=== PATIENT | female | born 2000 | race Caucasian/White ===

== ENCOUNTER 2023-06-22 22:43 | Emergency (ER) | payer OTHER ==
[2023-06-22 22:55] VITALS: BMI 20.4
[2023-06-22] MEDS ORDERED: ALBUTEROL SO4 2.5/IPRATROPIUM 0.5 INH SOL 3 ML VIAL.NEB. NEB ONE ×2 (23:50→23:51)
[2023-06-23] MEDS ORDERED: ALBUTEROL SO4 2.5/IPRATROPIUM 0.5 INH SOL 3 ML VIAL.NEB. NEB ONE ×2 (01:02→01:03)
[2023-06-23 01:25] VITALS: BP 96/57; PULSE 103; RESP 16; TEMP 98.8
== END 2023-06-23 02:01 | disposition home or self-care (01) ==
LOC: EDBD 22:43 → JER 22:43
PROC: 3E0F7GC Introduction of Other Therapeutic Substance into Respiratory Tract, Via Natural or Artificial Opening (ICD-10-PCS; principal; 2023-06-22)
DX: R06.02 Shortness of breath (principal); J20.9 Acute bronchitis, unspecified; Z20.822 Contact with and (suspected) exposure to COVID-19
CPT/HCPCS: 0241U-QW; 99283-25

== ENCOUNTER 2023-10-18 07:58 | Emergency (ER) | payer OTHER ==
[2023-10-18 08:29] VITALS: BP 100/66; PULSE 97; RESP 18; TEMP 98.5; BMI 20.2
[2023-10-18] MEDS: ACETAMINOPHEN 500 MG TABLET (FP) PO ONE (08:35)
[2023-10-18] MEDS: IBUPROFEN 600 MG TABLET (FP) PO ONE (08:50)
[2023-10-18] MEDS ORDERED: ACETAMINOPHEN 650 MG/20.3 ML ORAL SOLUTION (CUPS) ONE (09:04)
[2023-10-18] MEDS: PENICILLIN G BENZATHINE 1,200,000 UNIT/2 ML PFS IM ONE (10:28)
== END 2023-10-18 11:04 | disposition home or self-care (01) ==
LOC: JERFT 07:58 → JER 07:58 → JERFT 11:04
DX: J03.90 Acute tonsillitis, unspecified (principal); B96.89 Other specified bacterial agents as the cause of diseases classified elsewhere; R59.0 Localized enlarged lymph nodes; Z20.822 Contact with and (suspected) exposure to COVID-19
CPT/HCPCS: 0241U-QW; 87651; 99284-25

== ENCOUNTER 2023-12-24 14:08 | Emergency (ER) | payer OTHER ==
[2023-12-24 14:24] VITALS: BP 104/71; PULSE 115; RESP 17; TEMP 98.7; BMI 20.4
[2023-12-24] MEDS ORDERED: predniSONE 20 MG TABLET (UD) ONE (15:14)
[2023-12-24] MEDS ORDERED: predniSONE 10 MG TABLET (UD) ONE (15:14)
[2023-12-24] MEDS ORDERED: diphenhydrAMINE HCL 25 MG CAPSULE (FP) PO ONE (15:14)
[2023-12-24] MEDS ORDERED: FAMOTIDINE 20 MG TABLET ONE (15:14)
[2023-12-24] MEDS: diphenhydrAMINE HCL 50 MG CAPSULE PO ONE (15:23)
[2023-12-24] MEDS: FAMOTIDINE 10 MG TABLET PO ONE (15:23)
[2023-12-24] MEDS: predniSONE 20 MG TABLET (UD) PO ONE (15:23)
[2023-12-24 16:14] LABS: THROAT:GRP A STREP NOT DETECTED (NOTDETECTED)
== END 2023-12-24 16:41 | disposition home or self-care (01) ==
LOC: JERFT 14:08
DX: R21 Rash and other nonspecific skin eruption (principal); L50.9 Urticaria, unspecified; Z20.822 Contact with and (suspected) exposure to COVID-19
CPT/HCPCS: 0241U-QW; 87651; 99283-25

== ENCOUNTER 2024-07-27 04:56 | Emergency (ER) | payer OTHER ==
[2024-07-27] MEDS ORDERED: LORazepam 1 MG TABLET ONE ×3 (05:01→13:14)
[2024-07-27 05:03] VITALS: BMI 19.6
[2024-07-27] MEDS ORDERED: ACETAMINOPHEN 325 MG TABLET (FP) ONE (05:20)
[2024-07-27] MEDS ORDERED: LIDOCAINE 2.5%/PRILOCAINE 2.5% (5 Gram/TUBE) TP ONE (05:22)
[2024-07-27] MEDS: ACETAMINOPHEN 325 MG TABLET (FP) PO ONE (05:37)
[2024-07-27] MEDS: LORazepam 1 MG TABLET PO ONE (05:37)
[2024-07-27] MEDS ORDERED: IBUPROFEN 400 MG TABLET (FP) PO ONE (09:13)
[2024-07-27] MEDS ORDERED: LIDOCAINE HCL 1%, 10 MG/ML (20ML VIAL) ONE (09:41)
[2024-07-27] MEDS: LORazepam 2 MG TABLET PO ONE ×2 (11:37→13:20)
[2024-07-27] MEDS: LIDOCAINE HCL 1%, 10 MG/ML (50 mL VIAL) SQ ONE (11:37)
[2024-07-27] MEDS: IBUPROFEN 400 MG TABLET (FP) PO ONE (11:37)
[2024-07-27 11:52] VITALS: BP 93/50; PULSE 88; RESP 19; TEMP 98.1
[2024-07-27] MEDS ORDERED: ACETAMINOPHEN 500 MG TABLET (FP) ONE (14:51)
[2024-07-27] MEDS: ACETAMINOPHEN 500 MG TABLET (FP) PO ONE (14:58)
[2024-07-27] MEDS ORDERED: DIPHTH,PERTUSS(ACELL),TET 0.5 ML DISP.SYRIN IM ONE (15:39)
[2024-07-27] MEDS: DIPHTH,PERTUSS(ACELL),TET 0.5 ML DISP.SYRIN IM ONE (15:47)
== END 2024-07-27 16:38 | disposition home or self-care (01) ==
LOC: JER 04:56
PROC: 0YQ Anatomical Regions, Lower Extremities, Repair (ICD-10-PCS; principal; 2024-07-27)
DX: S31.821A Laceration without foreign body of left buttock, initial encounter (principal); S10.93XA Contusion of unspecified part of neck, initial encounter; S00.81XA Abrasion of other part of head, initial encounter; S40.212A Abrasion of left shoulder, initial encounter; Y04.8XXA Assault by other bodily force, initial encounter
CPT/HCPCS: 70450-TC; 71045-TC-FY; 99284-25